=== PATIENT | female | born 1995 | race Caucasian/White ===

== ENCOUNTER 2017-05-20 11:44 | Emergency (ER) | payer BC ==
[~2017-05-20] VITALS: Ht 152.4 cm; Wt 45.5 kg
[2017-05-20 13:04] LABS: HEMATOCRIT 37.6 % (36.0-46.0); HEMOGLOBIN 12.8 G/DL (11.9-15.5); MCH 31.8 PG (29.0-34.0); MCV 93.3 FL (83-99); PLATELET COUNT 311 K/uL (156-360); RBC DIS.WIDTH-CV 12.6 % (11.8-14.6); RBC DIS.WIDTH-SD 43.8 % (39-53); RED BLOOD COUNT 4.03 M/uL (3.80-5.20); WHITE BLOOD COUNT 7.4 K/uL (4.1-10.2)
[2017-05-20 13:14] LABS: ALBUMIN 4.6 g/dL (3.2-4.8); CHLORIDE 105 mEq/L (99-109); POTASSIUM 4.3 mEq/L (3.7-5.4); SODIUM 140 mEq/L (136-147)
[2017-05-20 13:16] LABS: GLUCOSE 81 mg/dL (70-99)
[2017-05-20 13:17] LABS: TOTAL PROTEIN 7.4 g/dL (6.4-8.3)
[2017-05-20 13:18] LABS: TOTAL BILIRUBIN 0.5 mg/dL (0.0-1.0)
[2017-05-20 13:20] LABS: ALKALINE PHOSPHATASE 149 IU/L (3-129); CREATININE 0.9 mg/dL (0.6-1.3); GFR ESTIMATE (CALCULATED) > 59 mL/min/
[2017-05-20 13:21] LABS: UREA NITROGEN (BUN) 13 mg/dL (9-23)
[2017-05-20 13:22] LABS: AST (GOT) 18 IU/L (2-34)
[2017-05-20 13:23] LABS: ALT (GPT) 15 IU/L (3-49)
[2017-05-20 13:30] LABS: QUANTITATIVE HCG < 4.0 MIU/ML
[2017-05-20 13:43] LABS: APPEARANCE SL.HAZY ((CLEAR)); BILIRUBIN NEGATIVE; BLOOD SMALL; COLOR YELLOW ((YELLOW)); GLUCOSE (STRIP) NEGATIVE; KETONES 5; LEUKOCYTES NEGATIVE; NITRITE POSITIVE; PROTEIN (STRIP) 30; SPECIFIC GRAVITY 1.025 (1.000-1.030); UROBILINOGEN 0.2 MG/DL (0.2-1.0)
[2017-05-20 13:46] LABS: BACTERIA RARE /HPF; EPITHELIAL CELLS 1+ /HPF; MUCUS 3+ /LPF; RED BLOOD CELLS 0-5 /HPF (0-5); UCUL ADDED? NO; WHITE BLOOD CELLS 0-5 /HPF (0-5)
[2017-05-20 14:51] VITALS: BP 110/66
== END 2017-05-20 14:51 | disposition home or self-care (01) ==
LOC: EME 11:44
PROVIDERS: Nurse Practitioner Family
DX: R55 Syncope and collapse (principal); E16.2 Hypoglycemia, unspecified; F17.200 Nicotine dependence, unspecified, uncomplicated; Z71.6 Tobacco abuse counseling; S30.810A Abrasion of lower back and pelvis, initial encounter
CPT/HCPCS: 80053; 81003; 82948; 84702; 85027; 93005; 99281; 99283

== ENCOUNTER → 2017-06-26 | Outpatient (CLI) | payer BC | END | disposition home or self-care (01) | LOC: EEG 10:00 | DX: R56.9 Unspecified convulsions (principal) | CPT/HCPCS: 95954 ==